=== PATIENT | female | born 1985 | race African-American/Black ===

== ENCOUNTER → 2017-05-05 | Outpatient (REF) | payer OTHER | LOC: M SFHCLERA 14:01 | PROVIDERS: ATTEND Nurse Practitioner Family | DX: J02.9 Acute pharyngitis, unspecified (principal) ==

== ENCOUNTER → 2018-11-11 | Outpatient (REF) | payer MEDICAID | LOC: M SFHCLERA 19:50 | PROVIDERS: ATTEND Physician Assistant | DX: J02.9 Acute pharyngitis, unspecified (principal) ==

== ENCOUNTER → 2018-11-19 | Outpatient (REF) | payer MEDICAID | LOC: M SFHCLERA 15:25 | PROVIDERS: ATTEND Nurse Practitioner Family | DX: J02.9 Acute pharyngitis, unspecified (principal) ==

== ENCOUNTER → 2021-07-02 | Outpatient (REF) | payer OTHER | LOC: M LAB REF 21:36 | PROVIDERS: ATTEND Physician Assistant | DX: J02.9 Acute pharyngitis, unspecified (principal) ==

== ENCOUNTER → 2022-05-20 | Outpatient (REF) | payer OTHER | LOC: M LAB REF 19:38 | PROVIDERS: ATTEND Physician Assistant | DX: N89.8 Other specified noninflammatory disorders of vagina (principal) ==

== ENCOUNTER → 2023-06-24 | Outpatient (REF) | payer OTHER | LOC: M LAB REF 17:14 | PROVIDERS: ATTEND Physician Assistant | DX: J02.9 Acute pharyngitis, unspecified (principal) ==